=== PATIENT | male | born 1955 | race Caucasian/White ===

== ENCOUNTER 2021-01-29 10:40 | Inpatient (IN) ==
[2021-01-29 12:32] LABS: Influenza A PCR Negative (Negative); Influenza B PCR Negative (Negative); Resp. Syncytial Virus PCR Negative (Negative)
[2021-01-29 12:34] LABS: SARS-CoV-2 by PCR (In House) Positive (Negative)
[2021-01-29 13:46] LABS: Basophils % 0.2 %; Immature Granulocytes % 0.4 % (0-4)
[2021-01-29 13:48] LABS: Hematocrit 40.1 % (37.5-50.1); Immature Platelets 3.7 % (1.1-6.1); Lymphocytes # 0.9 K/mcL (0.6-4.6); Lymphocytes % 18.2 %; Mean Corpuscular HGB Conc 32.4 g/dL (31.6-35.5); Mean Corpuscular Hemoglobin 29.5 pg (28.0-33.3); Mean Corpuscular Volume 90.9 fL (83.0-100.0); Mean Platelet Volume 10.4 fL (9.4-12.4); Monocytes # 0.4 K/mcL (0.0-1.3); Monocytes % 7.7 %; Platelet Count 138 K/mcL (140-400); Red Blood Count 4.41 M/mcL (4.19-5.50); Red Cell Distribution Width 13.3 % (11.5-14.5); Segmented Neutrophils % 73.5 %; White Blood Count 4.7 K/mcL (4.3-11.1)
[2021-01-29 13:58] LABS: Neutrophils # 3.5 K/mcL (1.6-8.9)
[2021-01-29 14:04] LABS: INR 1.3; Prothrombin Time 14.7 Seconds (9.4-12.1)
[2021-01-29 14:07] LABS: Activated Partial Thrombo Time 40.7 Seconds (26.0-36.0)
[2021-01-29 14:08] LABS: Alanine Aminotransferase 32 Units/L (7-52); Albumin/Globulin Ratio 1.2 (1.1-2.2); Alkaline Phosphatase 53 Units/L (34-104); Aspartate Amino Transferase 40 Units/L (13-39); BUN/Creatinine Ratio 24 (6-26); Bilirubin,Direct 0.1 mg/dL (0.0-0.2); Bilirubin,Indirect 0.4 mg/dL (0.0-1.0); Bilirubin,Total 0.5 mg/dL (0.3-1.0); Blood Urea Nitrogen 31 mg/dL (8-23); Calcium 8.5 mg/dL (8.6-10.3); Carbon Dioxide 22 mEq/L (23-29); Chloride 103 mEq/L (98-107); Globulin 3.4 g/dL (2.4-3.5); Glucose 142 mg/dL (70-105); Osmolality,Calculated 285 (280-300); Potassium 4.4 mEq/L (3.5-5.1); Sodium 133 mEq/L (136-145); Total Protein 7.4 g/dL (6.4-8.9); Troponin I < 0.03 ng/mL (< 0.04); eGFR For African Americans > 60 (> 60); eGFR For Non-African Americans 56 (> 60)
[2021-01-29] MEDS ORDERED: *HR* HYDROcodone/Acet 5/325 mg TABLET PO PRN (17:50)
[2021-01-29] MEDS ORDERED: Naloxone 0.4 MG/ML INJ IVP PRN (17:50)
[2021-01-29] MEDS ORDERED: Ondansetron 4 MG/2 ML VIAL IVP PRN (17:50)
[2021-01-29] MEDS ORDERED: Acetaminophen 325 MG TABLET PO PRN (17:50)
[2021-01-29] MEDS ORDERED: Saliva Stimulant 44.3ml BOTTLE PO PRN (17:54)
[2021-01-29] MEDS ORDERED: Saline Nasal Spray 44 ML BOTTLE NS PRN (17:54)
[2021-01-29] MEDS ORDERED: Remdesivir 200 MG in 0.9 % Sodium Chloride 100 ML IVPB ONE (18:56)
[2021-01-29] MEDS: Ipratropium 1 PUFF INHALER IH SCH ×2 (20:52→23:08)
[2021-01-29 22:16] LABS: Chol/HDL Ratio 9.5 (0-4.9)
[2021-01-29] MEDS: Furosemide 20 MG/2 ML VIAL IVP SCH (22:48)
[2021-01-29] MEDS: Chlorhexidine Rinse 15 ML MOUTHWASH MM SCH (22:49)
[2021-01-30 01:57] LABS: Basophils % 0.2 %; Hematocrit 39.5 % (37.5-50.1); Hemoglobin 13.1 g/dL (12.9-16.9); Immature Granulocytes % 0.5 % (0-4); Lymphocytes # 0.9 K/mcL (0.6-4.6); Lymphocytes % 20.1 %; Mean Corpuscular HGB Conc 33.2 g/dL (31.6-35.5); Mean Corpuscular Hemoglobin 30.2 pg (28.0-33.3); Mean Platelet Volume 10.3 fL (9.4-12.4); Monocytes # 0.3 K/mcL (0.0-1.3); Monocytes % 7.1 %; Platelet Count 134 K/mcL (140-400); Red Blood Count 4.34 M/mcL (4.19-5.50); Red Cell Distribution Width 13.2 % (11.5-14.5); Segmented Neutrophils % 72.1 %; White Blood Count 4.2 K/mcL (4.3-11.1)
[2021-01-30 02:03] LABS: INR 1.3; Prothrombin Time 14.9 Seconds (9.4-12.1)
[2021-01-30 02:15] LABS: Alanine Aminotransferase 33 Units/L (7-52); Albumin 3.7 g/dL (3.5-5.7); Alkaline Phosphatase 46 Units/L (34-104); Aspartate Amino Transferase 43 Units/L (13-39); BUN/Creatinine Ratio 22 (6-26); Bilirubin,Total 0.4 mg/dL (0.3-1.0); Blood Urea Nitrogen 28 mg/dL (8-23); Calcium 7.9 mg/dL (8.6-10.3); Carbon Dioxide 18 mEq/L (23-29); Chloride 103 mEq/L (98-107); Globulin 3.6 g/dL (2.4-3.5); Glucose 205 mg/dL (70-105); Magnesium 2.1 mg/dL (1.6-2.6); Osmolality,Calculated 287 (280-300); Phosphorous 2.3 mg/dL (2.7-4.5); Sodium 133 mEq/L (136-145); Total Protein 7.3 g/dL (6.4-8.9); eGFR For African Americans > 60 (> 60); eGFR For Non-African Americans 58 (> 60)
[2021-01-30 02:22] LABS: C-Reactive Protein 44 mg/L (Less than 10); Lactate Dehydrogenase 249 Units/L (140-271)
[2021-01-30 02:34] LABS: Ferritin > 1500 ng/mL (20-250)
[2021-01-30] MEDS: Artificial Tears SOLN 15 ML BOTTLE BOTH EYES SCH ×3 (02:48→21:28)
[2021-01-30] MEDS: Ipratropium 1 PUFF INHALER IH SCH ×5 (05:19→20:20)
[2021-01-30] MEDS: NIFEdipine XL (24 HR) 30 MG TAB.ER.24 PO SCH (09:42)
[2021-01-30] MEDS: Apixaban 5 MG TABLET PO SCH ×2 (09:42→21:27)
[2021-01-30] MEDS: Cholecalciferol (D-3) 1,000 UNIT (25MCG) TABLET PO SCH (09:42)
[2021-01-30] MEDS: Metoprolol XL (24 HR) Succ 50 MG TAB.ER.24H PO SCH (09:42)
[2021-01-30] MEDS: Multivit/Ca/Min/Fe/FA 1 TAB TABLET PO SCH (09:42)
[2021-01-30] MEDS: Furosemide 20 MG/2 ML VIAL IVP SCH (09:43)
[2021-01-30] MEDS: Chlorhexidine Rinse 15 ML MOUTHWASH MM SCH ×2 (09:43→21:27)
[2021-01-30] MEDS: cefTRIAXone 1,000 MG in Water for inj. (sterile) 10 ML IVP SCH (09:44)
[2021-01-30] MEDS: Remdesivir 100 MG in 0.9 % Sodium Chloride 100 ML IVPB SCH (21:26)
[2021-01-31] MEDS: Ipratropium 1 PUFF INHALER IH SCH ×6 (00:15→20:28)
[2021-01-31 07:08] LABS: Alanine Aminotransferase 32 Units/L (7-52); Albumin 3.9 g/dL (3.5-5.7); Albumin/Globulin Ratio 1.1 (1.1-2.2); Alkaline Phosphatase 50 Units/L (34-104); Aspartate Amino Transferase 31 Units/L (13-39); BUN/Creatinine Ratio 23 (6-26); Bilirubin,Direct 0.1 mg/dL (0.0-0.2); Bilirubin,Indirect 0.3 mg/dL (0.0-1.0); Bilirubin,Total 0.4 mg/dL (0.3-1.0); Blood Urea Nitrogen 23 mg/dL (8-23); Calcium 8.7 mg/dL (8.6-10.3); Carbon Dioxide 23 mEq/L (23-29); Chloride 103 mEq/L (98-107); Globulin 3.7 g/dL (2.4-3.5); Glucose 183 mg/dL (70-105); Osmolality,Calculated 288 (280-300); Potassium 3.8 mEq/L (3.5-5.1); Sodium 135 mEq/L (136-145); Total Protein 7.6 g/dL (6.4-8.9); eGFR For African Americans > 60 (> 60); eGFR For Non-African Americans > 60 (> 60)
[2021-01-31] MEDS: Cholecalciferol (D-3) 1,000 UNIT (25MCG) TABLET PO SCH (08:57)
[2021-01-31] MEDS: Multivit/Ca/Min/Fe/FA 1 TAB TABLET PO SCH (08:57)
[2021-01-31] MEDS: Metoprolol XL (24 HR) Succ 50 MG TAB.ER.24H PO SCH (08:57)
[2021-01-31] MEDS: Apixaban 5 MG TABLET PO SCH ×2 (08:57→20:45)
[2021-01-31] MEDS: NIFEdipine XL (24 HR) 30 MG TAB.ER.24 PO SCH (08:58)
[2021-01-31] MEDS: Furosemide 20 MG/2 ML VIAL IVP SCH (08:58)
[2021-01-31] MEDS: Chlorhexidine Rinse 15 ML MOUTHWASH MM SCH ×2 (08:58→20:44)
[2021-01-31] MEDS: cefTRIAXone 1,000 MG in Water for inj. (sterile) 10 ML IVP SCH (08:59)
[2021-01-31] MEDS: Artificial Tears SOLN 15 ML BOTTLE BOTH EYES SCH ×2 (10:12→20:44)
[2021-01-31] MEDS: Remdesivir 100 MG in 0.9 % Sodium Chloride 100 ML IVPB SCH (18:36)
[2021-02-01] MEDS: Ipratropium 1 PUFF INHALER IH SCH ×7 (00:15→23:13)
[2021-02-01 05:49] LABS: Hematocrit 43.1 % (37.5-50.1); Hemoglobin 14.5 g/dL (12.9-16.9); Mean Corpuscular HGB Conc 33.6 g/dL (31.6-35.5); Mean Corpuscular Hemoglobin 29.8 pg (28.0-33.3); Mean Corpuscular Volume 88.5 fL (83.0-100.0); Mean Platelet Volume 10.3 fL (9.4-12.4); Platelet Count 223 K/mcL (140-400); Red Blood Count 4.87 M/mcL (4.19-5.50); Red Cell Distribution Width 13.2 % (11.5-14.5)
[2021-02-01 06:21] LABS: Alanine Aminotransferase 29 Units/L (7-52); Albumin 3.9 g/dL (3.5-5.7); Albumin/Globulin Ratio 1.1 (1.1-2.2); Alkaline Phosphatase 52 Units/L (34-104); Aspartate Amino Transferase 27 Units/L (13-39); BUN/Creatinine Ratio 29 (6-26); Bilirubin,Direct 0.2 mg/dL (0.0-0.2); Bilirubin,Indirect 0.2 mg/dL (0.0-1.0); Bilirubin,Total 0.4 mg/dL (0.3-1.0); Blood Urea Nitrogen 30 mg/dL (8-23); Calcium 9.2 mg/dL (8.6-10.3); Carbon Dioxide 20 mEq/L (23-29); Chloride 103 mEq/L (98-107); Globulin 3.5 g/dL (2.4-3.5); Glucose 156 mg/dL (70-105); Magnesium 2.2 mg/dL (1.6-2.6); Osmolality,Calculated 291 (280-300); Phosphorous 4.8 mg/dL (2.7-4.5); Potassium 4.4 mEq/L (3.5-5.1); Sodium 136 mEq/L (136-145); Total Protein 7.4 g/dL (6.4-8.9); eGFR For African Americans > 60 (> 60); eGFR For Non-African Americans > 60 (> 60)
[2021-02-01 06:40] LABS: White Blood Count 11.3 K/mcL (4.3-11.1)
[2021-02-01 06:42] LABS: Ferritin > 1500 ng/mL (20-250)
[2021-02-01] MEDS: Multivit/Ca/Min/Fe/FA 1 TAB TABLET PO SCH (07:47)
[2021-02-01] MEDS: Apixaban 5 MG TABLET PO SCH ×2 (07:48→20:32)
[2021-02-01] MEDS: Cholecalciferol (D-3) 1,000 UNIT (25MCG) TABLET PO SCH (07:48)
[2021-02-01] MEDS: Metoprolol XL (24 HR) Succ 50 MG TAB.ER.24H PO SCH (07:48)
[2021-02-01] MEDS: NIFEdipine XL (24 HR) 30 MG TAB.ER.24 PO SCH (07:48)
[2021-02-01] MEDS: Furosemide 20 MG/2 ML VIAL IVP SCH (07:48)
[2021-02-01] MEDS: cefTRIAXone 1,000 MG in Water for inj. (sterile) 10 ML IVP SCH (07:49)
[2021-02-01] MEDS: Chlorhexidine Rinse 15 ML MOUTHWASH MM SCH ×2 (07:49→20:33)
[2021-02-01 10:32] LABS: C-Reactive Protein 24 mg/L (Less than 10)
[2021-02-01] MEDS: Artificial Tears SOLN 15 ML BOTTLE BOTH EYES SCH ×2 (11:14→20:35)
[2021-02-01] MEDS: Remdesivir 100 MG in 0.9 % Sodium Chloride 100 ML IVPB SCH (20:31)
[2021-02-02] MEDS: Ipratropium 1 PUFF INHALER IH SCH ×4 (04:35→22:12)
[2021-02-02] MEDS: Apixaban 5 MG TABLET PO SCH ×2 (09:29→22:01)
[2021-02-02] MEDS: Cholecalciferol (D-3) 1,000 UNIT (25MCG) TABLET PO SCH (09:29)
[2021-02-02] MEDS: Metoprolol XL (24 HR) Succ 50 MG TAB.ER.24H PO SCH (09:30)
[2021-02-02] MEDS: Furosemide 20 MG/2 ML VIAL IVP SCH (09:30)
[2021-02-02] MEDS: Multivit/Ca/Min/Fe/FA 1 TAB TABLET PO SCH (09:30)
[2021-02-02] MEDS: NIFEdipine XL (24 HR) 30 MG TAB.ER.24 PO SCH (09:30)
[2021-02-02] MEDS: cefTRIAXone 1,000 MG in Water for inj. (sterile) 10 ML IVP SCH (09:31)
[2021-02-02] MEDS: Chlorhexidine Rinse 15 ML MOUTHWASH MM SCH ×2 (09:31→22:01)
[2021-02-02] MEDS: Artificial Tears SOLN 15 ML BOTTLE BOTH EYES SCH ×2 (14:20→22:01)
[2021-02-02] MEDS: Remdesivir 100 MG in 0.9 % Sodium Chloride 100 ML IVPB SCH (22:18)
[2021-02-03] MEDS: Ipratropium 1 PUFF INHALER IH SCH ×4 (04:57→22:12)
[2021-02-03 05:57] LABS: Hematocrit 41.9 % (37.5-50.1); Hemoglobin 14.3 g/dL (12.9-16.9); Mean Corpuscular HGB Conc 34.1 g/dL (31.6-35.5); Mean Corpuscular Hemoglobin 29.7 pg (28.0-33.3); Mean Corpuscular Volume 87.1 fL (83.0-100.0); Mean Platelet Volume 10.9 fL (9.4-12.4); Platelet Count 182 K/mcL (140-400); Red Blood Count 4.81 M/mcL (4.19-5.50); Red Cell Distribution Width 13.2 % (11.5-14.5); White Blood Count 15.4 K/mcL (4.3-11.1)
[2021-02-03 06:06] LABS: BUN/Creatinine Ratio 35 (6-26); Blood Urea Nitrogen 32 mg/dL (8-23); Calcium 8.9 mg/dL (8.6-10.3); Carbon Dioxide 24 mEq/L (23-29); Chloride 104 mEq/L (98-107); Glucose 189 mg/dL (70-105); Osmolality,Calculated 298 (280-300); Potassium 4.5 mEq/L (3.5-5.1); Sodium 138 mEq/L (136-145); eGFR For African Americans > 60 (> 60); eGFR For Non-African Americans > 60 (> 60)
[2021-02-03] MEDS: Chlorhexidine Rinse 15 ML MOUTHWASH MM SCH ×2 (07:52→22:49)
[2021-02-03] MEDS: Multivit/Ca/Min/Fe/FA 1 TAB TABLET PO SCH (07:53)
[2021-02-03] MEDS: Cholecalciferol (D-3) 1,000 UNIT (25MCG) TABLET PO SCH (07:53)
[2021-02-03] MEDS: Apixaban 5 MG TABLET PO SCH ×2 (07:53→22:49)
[2021-02-03] MEDS: Metoprolol XL (24 HR) Succ 50 MG TAB.ER.24H PO SCH (07:53)
[2021-02-03] MEDS: NIFEdipine XL (24 HR) 30 MG TAB.ER.24 PO SCH (07:53)
[2021-02-03] MEDS: cefTRIAXone 1,000 MG in Water for inj. (sterile) 10 ML IVP SCH (07:53)
[2021-02-03] MEDS: Furosemide 20 MG/2 ML VIAL IVP SCH (07:54)
[2021-02-03] MEDS: Artificial Tears SOLN 15 ML BOTTLE BOTH EYES SCH ×2 (07:54→22:49)
[2021-02-03 08:39] LABS: Ferritin 1308 ng/mL (20-250)
[2021-02-04] MEDS: Ipratropium 1 PUFF INHALER IH SCH ×4 (03:52→21:26)
[2021-02-04] MEDS: cefTRIAXone 1,000 MG in Water for inj. (sterile) 10 ML IVP SCH (09:05)
[2021-02-04] MEDS: Cholecalciferol (D-3) 1,000 UNIT (25MCG) TABLET PO SCH (09:06)
[2021-02-04] MEDS: Furosemide 20 MG/2 ML VIAL IVP SCH (09:06)
[2021-02-04] MEDS: Apixaban 5 MG TABLET PO SCH ×2 (09:06→21:02)
[2021-02-04] MEDS: Metoprolol XL (24 HR) Succ 50 MG TAB.ER.24H PO SCH (09:06)
[2021-02-04] MEDS: Chlorhexidine Rinse 15 ML MOUTHWASH MM SCH ×2 (09:06→21:02)
[2021-02-04] MEDS: NIFEdipine XL (24 HR) 30 MG TAB.ER.24 PO SCH (09:06)
[2021-02-04] MEDS: Multivit/Ca/Min/Fe/FA 1 TAB TABLET PO SCH (09:06)
[2021-02-04] MEDS: Artificial Tears SOLN 15 ML BOTTLE BOTH EYES SCH ×2 (09:17→21:05)
[2021-02-04] MEDS: Pantoprazole 40 MG VIAL IVP SCH (11:49)
[2021-02-04] MEDS: D5% in 0.45% NACL 1,000 ML IVC SCH (16:02)
[2021-02-04] MEDS ORDERED: *HR* LORazepam 2 MG/ML VIAL IVP ONE ×2 (21:17→22:46)
[2021-02-05] MEDS: Ipratropium 1 PUFF INHALER IH SCH ×4 (04:11→20:46)
[2021-02-05] MEDS: D5% in 0.45% NACL 1,000 ML IVC SCH ×2 (05:04→18:20)
[2021-02-05] MEDS: Multivit/Ca/Min/Fe/FA 1 TAB TABLET PO SCH (09:33)
[2021-02-05] MEDS: Apixaban 5 MG TABLET PO SCH ×2 (09:33→20:43)
[2021-02-05] MEDS: Furosemide 20 MG/2 ML VIAL IVP SCH (09:33)
[2021-02-05] MEDS: Pantoprazole 40 MG VIAL IVP SCH (09:33)
[2021-02-05] MEDS: Cholecalciferol (D-3) 1,000 UNIT (25MCG) TABLET PO SCH (09:33)
[2021-02-05] MEDS: Metoprolol XL (24 HR) Succ 50 MG TAB.ER.24H PO SCH (09:34)
[2021-02-05] MEDS: Artificial Tears SOLN 15 ML BOTTLE BOTH EYES SCH ×2 (09:34→20:57)
[2021-02-05] MEDS: NIFEdipine XL (24 HR) 30 MG TAB.ER.24 PO SCH (09:34)
[2021-02-05] MEDS: Chlorhexidine Rinse 15 ML MOUTHWASH MM SCH ×3 (09:34→20:58)
[2021-02-05 10:27] LABS: Basophils % 0.2 %; Hematocrit 40.2 % (37.5-50.1); Hemoglobin 13.6 g/dL (12.9-16.9); Immature Granulocytes % 3.6 % (0-4); Lymphocytes # 0.6 K/mcL (0.6-4.6); Lymphocytes % 2.9 %; Mean Corpuscular HGB Conc 33.8 g/dL (31.6-35.5); Mean Corpuscular Hemoglobin 29.8 pg (28.0-33.3); Mean Platelet Volume 10.6 fL (9.4-12.4); Monocytes # 0.5 K/mcL (0.0-1.3); Monocytes % 2.4 %; Neutrophils # 17.1 K/mcL (1.6-8.9); Platelet Count 291 K/mcL (140-400); Red Blood Count 4.57 M/mcL (4.19-5.50); Segmented Neutrophils % 90.9 %; White Blood Count 18.8 K/mcL (4.3-11.1)
[2021-02-05 10:41] LABS: BUN/Creatinine Ratio 35 (6-26); Blood Urea Nitrogen 29 mg/dL (8-23); Calcium 8.5 mg/dL (8.6-10.3); Carbon Dioxide 23 mEq/L (23-29); Chloride 102 mEq/L (98-107); Glucose 187 mg/dL (70-105); Osmolality,Calculated 291 (280-300); Potassium 4.8 mEq/L (3.5-5.1); Sodium 135 mEq/L (136-145); eGFR For African Americans > 60 (> 60); eGFR For Non-African Americans > 60 (> 60)
[2021-02-05] MEDS: *HR* LORazepam 2 MG/ML VIAL IVP PRN ×3 (10:41→20:54)
[2021-02-05] MEDS: Melatonin 3 MG TABLET PO PRN (20:42)
[2021-02-06] MEDS: *HR* LORazepam 2 MG/ML VIAL IVP PRN ×4 (01:37→17:15)
[2021-02-06] MEDS: Ipratropium 1 PUFF INHALER IH SCH ×4 (03:55→21:43)
[2021-02-06] MEDS: D5% in 0.45% NACL 1,000 ML IVC SCH (07:11)
[2021-02-06] MEDS: Pantoprazole 40 MG VIAL IVP SCH (08:30)
[2021-02-06] MEDS: Furosemide 20 MG/2 ML VIAL IVP SCH (08:31)
[2021-02-06] MEDS: Multivit/Ca/Min/Fe/FA 1 TAB TABLET PO SCH (08:32)
[2021-02-06] MEDS: Metoprolol XL (24 HR) Succ 50 MG TAB.ER.24H PO SCH (08:32)
[2021-02-06] MEDS: Cholecalciferol (D-3) 1,000 UNIT (25MCG) TABLET PO SCH (08:32)
[2021-02-06] MEDS: NIFEdipine XL (24 HR) 30 MG TAB.ER.24 PO SCH (08:33)
[2021-02-06] MEDS: Artificial Tears SOLN 15 ML BOTTLE BOTH EYES SCH ×2 (08:33→21:03)
[2021-02-06] MEDS: Apixaban 5 MG TABLET PO SCH ×2 (08:33→21:03)
[2021-02-06] MEDS: Chlorhexidine Rinse 15 ML MOUTHWASH MM SCH ×2 (08:34→21:02)
[2021-02-06 09:54] LABS: C-Reactive Protein 117 mg/L (Less than 10); Ferritin > 1500 ng/mL (20-250)
[2021-02-06] MEDS: Melatonin 3 MG TABLET PO PRN (21:03)
[2021-02-07] MEDS: *HR* LORazepam 2 MG/ML VIAL IVP PRN ×2 (02:44→13:11)
[2021-02-07] MEDS: Ipratropium 1 PUFF INHALER IH SCH ×5 (03:03→23:49)
[2021-02-07] MEDS: Apixaban 5 MG TABLET PO SCH ×2 (10:01→20:03)
[2021-02-07] MEDS: Pantoprazole 40 MG VIAL IVP SCH (10:01)
[2021-02-07] MEDS: Metoprolol XL (24 HR) Succ 50 MG TAB.ER.24H PO SCH (10:01)
[2021-02-07] MEDS: Cholecalciferol (D-3) 1,000 UNIT (25MCG) TABLET PO SCH (10:01)
[2021-02-07] MEDS: Multivit/Ca/Min/Fe/FA 1 TAB TABLET PO SCH (10:01)
[2021-02-07] MEDS: Chlorhexidine Rinse 15 ML MOUTHWASH MM SCH ×2 (10:01→20:03)
[2021-02-07] MEDS: Artificial Tears SOLN 15 ML BOTTLE BOTH EYES SCH ×2 (10:02→20:03)
[2021-02-07] MEDS: NIFEdipine XL (24 HR) 30 MG TAB.ER.24 PO SCH (10:15)
[2021-02-07] MEDS: Furosemide 20 MG/2 ML VIAL IVP SCH (10:16)
[2021-02-07 14:25] LABS: Hematocrit 41.2 % (37.5-50.1); Hemoglobin 13.8 g/dL (12.9-16.9); Mean Corpuscular HGB Conc 33.5 g/dL (31.6-35.5); Mean Corpuscular Hemoglobin 29.7 pg (28.0-33.3); Mean Corpuscular Volume 88.8 fL (83.0-100.0); Mean Platelet Volume 10.3 fL (9.4-12.4); Platelet Count 326 K/mcL (140-400); Red Blood Count 4.64 M/mcL (4.19-5.50); Red Cell Distribution Width 13.1 % (11.5-14.5); White Blood Count 18.7 K/mcL (4.3-11.1)
[2021-02-07 14:28] LABS: Alanine Aminotransferase 36 Units/L (7-52); Albumin 3.3 g/dL (3.5-5.7); Albumin/Globulin Ratio 0.8 (1.1-2.2); Alkaline Phosphatase 57 Units/L (34-104); Aspartate Amino Transferase 27 Units/L (13-39); BUN/Creatinine Ratio 35 (6-26); Bilirubin,Total 0.7 mg/dL (0.3-1.0); Blood Urea Nitrogen 34 mg/dL (8-23); Calcium 8.8 mg/dL (8.6-10.3); Carbon Dioxide 27 mEq/L (23-29); Chloride 101 mEq/L (98-107); Globulin 4.3 g/dL (2.4-3.5); Glucose 206 mg/dL (70-105); Magnesium 2.6 mg/dL (1.6-2.6); Osmolality,Calculated 300 (280-300); Potassium 4.5 mEq/L (3.5-5.1); Sodium 138 mEq/L (136-145); Total Protein 7.6 g/dL (6.4-8.9); eGFR For African Americans > 60 (> 60); eGFR For Non-African Americans > 60 (> 60)
[2021-02-07 15:38] LABS: Lymphocytes # 1.1 K/mcL (0.6-4.6); Monocytes # 0.4 K/mcL (0.0-1.3); Neutrophils # 17.2 K/mcL (1.6-8.9); Platelet Estimate Normal (Normal)
[2021-02-07] MEDS ORDERED: D5% in Water 1,000 ML IVC PRN (15:45)
[2021-02-07] MEDS ORDERED: Dextrose Gel 15 GM/37.5 ML TUBE PO PRN ×2 (15:45)
[2021-02-07 16:46] LABS: ABG Base Excess 5 mEq/L (-2 to 3); ABG HCO3 28 mEq/L (21-27); ABG Oxygen Saturation 91 % (95-98); ABG PCO2 36 mmHg (35-45); ABG PO2 56 mmHg (85-104); ABG TCO2 29 mEq/L (20-26)
[2021-02-07] MEDS: Saline Nasal Spray 44 ML BOTTLE NS SCH ×2 (18:19→19:55)
[2021-02-07] MEDS: Ampicillin/Sulbactam 1,500 MG in 0.9 % Sodium Chloride Mini Bag 100 ML IVPB SCH (18:24)
[2021-02-08] MEDS: Saline Nasal Spray 44 ML BOTTLE NS SCH ×6 (00:20→21:45)
[2021-02-08] MEDS: Ampicillin/Sulbactam 1,500 MG in 0.9 % Sodium Chloride Mini Bag 100 ML IVPB SCH ×4 (01:28→17:05)
[2021-02-08] MEDS: Ipratropium 1 PUFF INHALER IH SCH ×5 (03:31→19:58)
[2021-02-08] MEDS: Artificial Tears SOLN 15 ML BOTTLE BOTH EYES SCH ×2 (09:52→21:45)
[2021-02-08] MEDS: Chlorhexidine Rinse 15 ML MOUTHWASH MM SCH ×2 (09:53→21:45)
[2021-02-08] MEDS: Multivit/Ca/Min/Fe/FA 1 TAB TABLET PO SCH (09:54)
[2021-02-08] MEDS: Metoprolol XL (24 HR) Succ 50 MG TAB.ER.24H PO SCH (09:54)
[2021-02-08] MEDS: Apixaban 5 MG TABLET PO SCH ×2 (09:54→21:45)
[2021-02-08] MEDS: Cholecalciferol (D-3) 1,000 UNIT (25MCG) TABLET PO SCH (09:54)
[2021-02-08] MEDS: Furosemide 20 MG/2 ML VIAL IVP SCH (09:57)
[2021-02-08] MEDS: NIFEdipine XL (24 HR) 30 MG TAB.ER.24 PO SCH (10:02)
[2021-02-08] MEDS: Pantoprazole 40 MG VIAL IVP SCH (10:03)
[2021-02-08] MEDS ORDERED: Lidocaine -MPF 1% 5 ML AMPUL INFILT ONE (13:01)
[2021-02-08 13:28] LABS: Basophils # 0.1 K/mcL (0.0-0.2); Basophils % 0.4 %; Hematocrit 40.4 % (37.5-50.1); Hemoglobin 13.3 g/dL (12.9-16.9); Immature Granulocytes % 5.6 % (0-4); Lymphocytes # 0.3 K/mcL (0.6-4.6); Lymphocytes % 1.2 %; Mean Corpuscular HGB Conc 32.9 g/dL (31.6-35.5); Mean Corpuscular Hemoglobin 29.8 pg (28.0-33.3); Mean Corpuscular Volume 90.4 fL (83.0-100.0); Mean Platelet Volume 10.2 fL (9.4-12.4); Monocytes % 2.6 %; Platelet Count 303 K/mcL (140-400); Red Blood Count 4.47 M/mcL (4.19-5.50); Red Cell Distribution Width 13.2 % (11.5-14.5); Segmented Neutrophils % 90.2 %; White Blood Count 20.9 K/mcL (4.3-11.1)
[2021-02-08 13:32] LABS: Monocytes # 0.5 K/mcL (0.0-1.3); Neutrophils # 18.9 K/mcL (1.6-8.9)
[2021-02-08 13:50] LABS: Alanine Aminotransferase 27 Units/L (7-52); Albumin 3.1 g/dL (3.5-5.7); Albumin/Globulin Ratio 0.7 (1.1-2.2); Alkaline Phosphatase 58 Units/L (34-104); Aspartate Amino Transferase 25 Units/L (13-39); BUN/Creatinine Ratio 39 (6-26); Bilirubin,Total 0.9 mg/dL (0.3-1.0); Blood Urea Nitrogen 41 mg/dL (8-23); C-Reactive Protein 74 mg/L (Less than 10); Calcium 8.5 mg/dL (8.6-10.3); Carbon Dioxide 25 mEq/L (23-29); Chloride 99 mEq/L (98-107); Globulin 4.2 g/dL (2.4-3.5); Glucose 270 mg/dL (70-105); Lactate Dehydrogenase 461 Units/L (140-271); Magnesium 2.5 mg/dL (1.6-2.6); Osmolality,Calculated 302 (280-300); Phosphorous 3.9 mg/dL (2.7-4.5); Potassium 4.6 mEq/L (3.5-5.1); Sodium 136 mEq/L (136-145); Total Protein 7.3 g/dL (6.4-8.9); eGFR For African Americans > 60 (> 60); eGFR For Non-African Americans > 60 (> 60)
[2021-02-08 14:12] LABS: Ferritin > 1500 ng/mL (20-250)
[2021-02-08 14:47] LABS: Platelet Estimate Normal (Normal)
[2021-02-08] MEDS: Melatonin 3 MG TABLET PO PRN (21:45)
[2021-02-09] MEDS: Ipratropium 1 PUFF INHALER IH SCH ×7 (00:08→23:58)
[2021-02-09] MEDS: Saline Nasal Spray 44 ML BOTTLE NS SCH ×7 (01:48→23:43)
[2021-02-09] MEDS: Ampicillin/Sulbactam 1,500 MG in 0.9 % Sodium Chloride Mini Bag 100 ML IVPB SCH ×4 (01:48→17:32)
[2021-02-09 04:49] LABS: Hemoglobin 13.1 g/dL (12.9-16.9); Red Blood Count 4.41 M/mcL (4.19-5.50)
[2021-02-09 04:50] LABS: Basophils # 0.1 K/mcL (0.0-0.2); Basophils % 0.3 %; Hematocrit 39.6 % (37.5-50.1); Immature Granulocytes % 5.4 % (0-4); Lymphocytes # 0.4 K/mcL (0.6-4.6); Mean Corpuscular HGB Conc 33.1 g/dL (31.6-35.5); Mean Corpuscular Hemoglobin 29.7 pg (28.0-33.3); Mean Corpuscular Volume 89.8 fL (83.0-100.0); Mean Platelet Volume 10.2 fL (9.4-12.4); Monocytes # 0.6 K/mcL (0.0-1.3); Platelet Count 265 K/mcL (140-400); Red Cell Distribution Width 12.9 % (11.5-14.5); Segmented Neutrophils % 89.3 %
[2021-02-09 05:02] LABS: Neutrophils # 18.8 K/mcL (1.6-8.9)
[2021-02-09 05:14] LABS: Alanine Aminotransferase 24 Units/L (7-52); Albumin/Globulin Ratio 0.8 (1.1-2.2); Alkaline Phosphatase 59 Units/L (34-104); Aspartate Amino Transferase 25 Units/L (13-39); BUN/Creatinine Ratio 44 (6-26); Bilirubin,Total 0.6 mg/dL (0.3-1.0); Blood Urea Nitrogen 39 mg/dL (8-23); C-Reactive Protein 109 mg/L (Less than 10); Calcium 8.5 mg/dL (8.6-10.3); Carbon Dioxide 26 mEq/L (23-29); Chloride 103 mEq/L (98-107); Glucose 140 mg/dL (70-105); Lactate Dehydrogenase 508 Units/L (140-271); Magnesium 2.8 mg/dL (1.6-2.6); Osmolality,Calculated 300 (280-300); Potassium 4.4 mEq/L (3.5-5.1); Sodium 139 mEq/L (136-145); eGFR For African Americans > 60 (> 60); eGFR For Non-African Americans > 60 (> 60)
[2021-02-09 05:38] LABS: Ferritin > 1500 ng/mL (20-250)
[2021-02-09 05:57] LABS: Platelet Estimate Normal (Normal)
[2021-02-09] MEDS: NIFEdipine XL (24 HR) 30 MG TAB.ER.24 PO SCH (08:25)
[2021-02-09] MEDS: Cholecalciferol (D-3) 1,000 UNIT (25MCG) TABLET PO SCH (08:25)
[2021-02-09] MEDS: Metoprolol XL (24 HR) Succ 50 MG TAB.ER.24H PO SCH (08:25)
[2021-02-09] MEDS: Multivit/Ca/Min/Fe/FA 1 TAB TABLET PO SCH (08:25)
[2021-02-09] MEDS: Chlorhexidine Rinse 15 ML MOUTHWASH MM SCH ×2 (08:25→20:24)
[2021-02-09] MEDS: Pantoprazole 40 MG VIAL IVP SCH (08:25)
[2021-02-09] MEDS: Apixaban 5 MG TABLET PO SCH (08:25)
[2021-02-09] MEDS: Furosemide 20 MG/2 ML VIAL IVP SCH (08:26)
[2021-02-09] MEDS: *HR* LORazepam 2 MG/ML VIAL IVP PRN (08:26)
[2021-02-09] MEDS: Artificial Tears SOLN 15 ML BOTTLE BOTH EYES SCH ×2 (08:41→20:24)
[2021-02-09 09:28] LABS: ABG Base Excess 3 mEq/L (-2 to 3); ABG HCO3 26 mEq/L (21-27); ABG Oxygen Saturation 88 % (95-98); ABG PCO2 36 mmHg (35-45); ABG PH 7.48 pH Units (7.32-7.45); ABG PO2 50 mmHg (85-104); ABG TCO2 27 mEq/L (20-26); Blood Gas VT 450 cc
[2021-02-09] MEDS ORDERED: 0.9 % Sodium Chloride 500 ML ONE (11:17)
[2021-02-09] MEDS ORDERED: D10% in Water 500 ML IVC PRN (11:19)
[2021-02-09] MEDS: DilTIAZem 50 MG/50 ML IV.SOLN IVC SCH ×3 (11:27→20:29)
[2021-02-09] MEDS ORDERED: *HR* Metoprolol 5 MG/5 ML VIAL IVP ONE (11:29)
[2021-02-09] MEDS ORDERED: Dexmedetomidine HCl 400 MCG/100 ML MLS IVC ONE (14:10)
[2021-02-09] MEDS: Dexmedetomidine HCl 400 MCG/100 ML MLS IVC SCH (14:37)
[2021-02-09] MEDS ORDERED: Amiodarone Premix 360 MG/200 ML BAG IVC ONE (16:44)
[2021-02-09] MEDS ORDERED: Amiodarone Premix 150 MG/100 ML BAG IVPB ONE (16:44)
[2021-02-09] MEDS: *HR* Metoprolol 5 MG/5 ML VIAL IVP PRN (16:51)
[2021-02-09] MEDS: Insulin LISPRO 300 UNITS/3 ML VIAL SUBQ SCH ×2 (16:52→20:23)
[2021-02-09] MEDS ORDERED: Clinimix 5%-20% SOLUTION 2,000 ML with MVI, adult with vitamin K 10 ML, Sodium Acetat... IVC SCH (17:00)
[2021-02-09 17:06] LABS: Hematocrit 40.3 % (37.5-50.1); Hemoglobin 13.3 g/dL (12.9-16.9); Mean Corpuscular Hemoglobin 30.1 pg (28.0-33.3); Mean Corpuscular Volume 91.2 fL (83.0-100.0); Mean Platelet Volume 10.3 fL (9.4-12.4); Platelet Count 258 K/mcL (140-400); Red Blood Count 4.42 M/mcL (4.19-5.50); Red Cell Distribution Width 13.2 % (11.5-14.5); White Blood Count 24.6 K/mcL (4.3-11.1)
[2021-02-09 17:53] LABS: INR 1.9; Prothrombin Time 21.1 Seconds (9.4-12.1)
[2021-02-09 17:56] LABS: Activated Partial Thrombo Time 33.9 Seconds (26.0-36.0)
[2021-02-09] MEDS ORDERED: *HR* Heparin 5,000 UNIT/ML VIAL IVP PRN ×2 (18:00)
[2021-02-09] MEDS: Heparin 25,000UNIT/250ML 1/2NS 25,000 UNIT/250 ML IV.SOLN IVC SCH (19:41)
[2021-02-09] MEDS: Amiodarone Premix 360 MG/200 ML BAG IVC SCH (23:21)
[2021-02-10] MEDS: Dexmedetomidine HCl 400 MCG/100 ML MLS IVC SCH ×3 (00:03→13:02)
[2021-02-10] MEDS: Insulin LISPRO 300 UNITS/3 ML VIAL SUBQ SCH ×5 (00:23→20:07)
[2021-02-10] MEDS: *HR* Metoprolol 5 MG/5 ML VIAL IVP PRN ×3 (01:45→08:17)
[2021-02-10 03:23] LABS: Basophils # 0.1 K/mcL (0.0-0.2); Basophils % 0.3 %; Hematocrit 41.9 % (37.5-50.1); Hemoglobin 13.6 g/dL (12.9-16.9); Immature Granulocytes % 3.4 % (0-4); Lymphocytes # 0.4 K/mcL (0.6-4.6); Lymphocytes % 1.9 %; Mean Corpuscular HGB Conc 32.5 g/dL (31.6-35.5); Mean Corpuscular Hemoglobin 29.8 pg (28.0-33.3); Mean Corpuscular Volume 91.9 fL (83.0-100.0); Mean Platelet Volume 10.6 fL (9.4-12.4); Monocytes # 0.6 K/mcL (0.0-1.3); Monocytes % 2.6 %; Neutrophils # 20.2 K/mcL (1.6-8.9); Platelet Count 209 K/mcL (140-400); Red Blood Count 4.56 M/mcL (4.19-5.50); Segmented Neutrophils % 91.8 %
[2021-02-10 03:45] LABS: Alanine Aminotransferase 25 Units/L (7-52); Albumin 2.9 g/dL (3.5-5.7); Albumin/Globulin Ratio 0.7 (1.1-2.2); Alkaline Phosphatase 62 Units/L (34-104); Aspartate Amino Transferase 19 Units/L (13-39); BUN/Creatinine Ratio 50 (6-26); Bilirubin,Total 0.4 mg/dL (0.3-1.0); Blood Urea Nitrogen 55 mg/dL (8-23); C-Reactive Protein 115 mg/L (Less than 10); Calcium 8.2 mg/dL (8.6-10.3); Carbon Dioxide 25 mEq/L (23-29); Chloride 100 mEq/L (98-107); Globulin 3.9 g/dL (2.4-3.5); Glucose 403 mg/dL (70-105); Lactate Dehydrogenase 437 Units/L (140-271); Magnesium 2.9 mg/dL (1.6-2.6); Osmolality,Calculated 312 (280-300); Phosphorous 4.2 mg/dL (2.7-4.5); Potassium 3.9 mEq/L (3.5-5.1); Sodium 135 mEq/L (136-145); Total Protein 6.8 g/dL (6.4-8.9); Triglycerides 219 mg/dL (< 150); eGFR For African Americans > 60 (> 60); eGFR For Non-African Americans > 60 (> 60)
[2021-02-10 03:50] LABS: Activated Partial Thrombo Time 90.4 Seconds (26.0-36.0)
[2021-02-10] MEDS: Ipratropium 1 PUFF INHALER IH SCH ×5 (04:03→20:14)
[2021-02-10 04:05] LABS: Ferritin > 1500 ng/mL (20-250)
[2021-02-10] MEDS: Saline Nasal Spray 44 ML BOTTLE NS SCH ×4 (04:38→21:38)
[2021-02-10] MEDS: Ampicillin/Sulbactam 1,500 MG in 0.9 % Sodium Chloride Mini Bag 100 ML IVPB SCH ×4 (05:44→19:45)
[2021-02-10] MEDS: DilTIAZem 50 MG/50 ML IV.SOLN IVC SCH ×3 (06:41→14:32)
[2021-02-10] MEDS ORDERED: Potassium Chloride 20 MEQ, Lidocaine 1% 2 ML in 0.9 % Sodium Chloride 250 ML IVPB ONE (07:38)
[2021-02-10] MEDS: Furosemide 20 MG/2 ML VIAL IVP SCH (08:15)
[2021-02-10] MEDS: Cholecalciferol (D-3) 1,000 UNIT (25MCG) TABLET PO SCH (08:16)
[2021-02-10] MEDS: Artificial Tears SOLN 15 ML BOTTLE BOTH EYES SCH ×2 (08:17→19:38)
[2021-02-10] MEDS: Multivit/Ca/Min/Fe/FA 1 TAB TABLET PO SCH (08:17)
[2021-02-10] MEDS: Pantoprazole 40 MG VIAL IVP SCH (08:17)
[2021-02-10] MEDS: Chlorhexidine Rinse 15 ML MOUTHWASH MM SCH ×2 (08:17→19:37)
[2021-02-10] MEDS ORDERED: Perflutren Lipid Microsphere 1.3 ML in 0.9 % Sodium Chloride 8.7 ML IVP PRN (08:28)
[2021-02-10 08:52] LABS: ABG Base Excess -1 mEq/L (-2 to 3); ABG HCO3 23 mEq/L (21-27); ABG Oxygen Saturation 85 % (95-98); ABG PCO2 35 mmHg (35-45); ABG PH 7.42 pH Units (7.32-7.45); ABG PO2 49 mmHg (85-104); ABG TCO2 24 mEq/L (20-26)
[2021-02-10] MEDS ORDERED: 0.9 % Sodium Chloride 500 ML ONE ×3 (09:57→10:39)
[2021-02-10] MEDS ORDERED: Insulin DETEMIR 100 UNIT/ML X5UNITS SUBQ ONE (10:30)
[2021-02-10] MEDS: Midazolam HCl 50 MG/100 ML IV.SOLN IVC SCH ×2 (10:30→20:55)
[2021-02-10] MEDS: Cisatracurium 200 MG in 0.9 % Sodium Chloride 180 ML IVC SCH ×2 (10:30→21:45)
[2021-02-10] MEDS: FentaNYL (PF) 1,000 MCG/100 ML IV.SOLN IVC SCH ×3 (10:30→20:04)
[2021-02-10] MEDS: Norepinephrine 4 MG/254 ML IV.SOLN IVC SCH ×2 (10:40→20:33)
[2021-02-10] MEDS: Amiodarone Premix 360 MG/200 ML BAG IVC SCH (12:13)
[2021-02-10] MEDS ORDERED: Clinimix 5%-20% SOLUTION 2,000 ML with MVI, adult with vitamin K 10 ML, Sodium Acetat... IVC SCH (17:00)
[2021-02-10] MEDS: Heparin 25,000UNIT/250ML 1/2NS 25,000 UNIT/250 ML IV.SOLN IVC SCH (19:00)
[2021-02-10 19:57] LABS: ABG Base Excess -5 mEq/L (-2 to 3); ABG HCO3 24 mEq/L (21-27); ABG Oxygen Saturation 91 % (95-98); ABG PCO2 61 mmHg (35-45); ABG PH 7.21 pH Units (7.32-7.45); ABG PO2 76 mmHg (85-104); ABG TCO2 26 mEq/L (20-26); Blood Gas VT 480 cc
[2021-02-10] MEDS: Insulin DETEMIR 100 UNIT/ML X5UNITS SUBQ SCH (20:06)
[2021-02-10 21:11] LABS: Hemoglobin 12.1 g/dL (12.9-16.9)
[2021-02-10 21:32] LABS: Magnesium 3.2 mg/dL (1.6-2.6); Phosphorous 5.8 mg/dL (2.7-4.5)
[2021-02-10 22:14] LABS: VBG Ionized Calcium 0.85 mmol/L (1.15-1.35)
[2021-02-10] MEDS ORDERED: Calcium Chloride 2,000 MG in 0.9 % Sodium Chloride 100 ML IVPB ONE (22:48)
[2021-02-11] MEDS: Saline Nasal Spray 44 ML BOTTLE NS SCH ×4 (00:02→11:47)
[2021-02-11] MEDS: Ampicillin/Sulbactam 1,500 MG in 0.9 % Sodium Chloride Mini Bag 100 ML IVPB SCH ×2 (00:04→05:43)
[2021-02-11] MEDS: Ipratropium 1 PUFF INHALER IH SCH ×7 (00:12→23:33)
[2021-02-11] MEDS ORDERED: Amiodarone Premix 360 MG/200 ML BAG IVC ONE (01:00)
[2021-02-11] MEDS: FentaNYL (PF) 1,000 MCG/100 ML IV.SOLN IVC SCH ×5 (01:18→23:08)
[2021-02-11] MEDS: Norepinephrine 4 MG/254 ML IV.SOLN IVC SCH ×4 (04:15→23:47)
[2021-02-11 04:34] LABS: ABG Base Excess -7 mEq/L (-2 to 3); ABG HCO3 22 mEq/L (21-27); ABG Oxygen Saturation 97 % (95-98); ABG PCO2 53 mmHg (35-45); ABG PH 7.22 pH Units (7.32-7.45); ABG PO2 110 mmHg (85-104); ABG TCO2 23 mEq/L (20-26); Blood Gas Modality ASSIST CONTROL; Blood Gas VT 460 cc
[2021-02-11] MEDS: Insulin LISPRO 300 UNITS/3 ML VIAL SUBQ SCH ×5 (04:45→15:17)
[2021-02-11 04:51] LABS: Basophils % 0.4 %; Hematocrit 39.2 % (37.5-50.1); Hemoglobin 12.6 g/dL (12.9-16.9); Lymphocytes % 0.9 %; Mean Corpuscular HGB Conc 32.1 g/dL (31.6-35.5); Mean Corpuscular Hemoglobin 30.1 pg (28.0-33.3); Mean Corpuscular Volume 93.8 fL (83.0-100.0); Mean Platelet Volume 10.9 fL (9.4-12.4); Red Blood Count 4.18 M/mcL (4.19-5.50); Red Cell Distribution Width 13.2 % (11.5-14.5)
[2021-02-11 04:53] LABS: Basophils # 0.2 K/mcL (0.0-0.2); Immature Granulocytes % 4.6 % (0-4); Lymphocytes # 0.4 K/mcL (0.6-4.6); Monocytes # 1.3 K/mcL (0.0-1.3); Monocytes % 2.9 %; Platelet Count 274 K/mcL (140-400); Segmented Neutrophils % 91.2 %
[2021-02-11 05:01] LABS: Calcium 8.6 mg/dL (8.6-10.3); Magnesium 2.7 mg/dL (1.6-2.6); Phosphorous 5.3 mg/dL (2.7-4.5); Potassium 4.5 mEq/L (3.5-5.1)
[2021-02-11 05:06] LABS: VBG Ionized Calcium 1.11 mmol/L (1.15-1.35)
[2021-02-11 07:25] LABS: Platelet Estimate Normal (Normal)
[2021-02-11] MEDS: Pantoprazole 40 MG VIAL IVP SCH (07:34)
[2021-02-11] MEDS: Cholecalciferol (D-3) 1,000 UNIT (25MCG) TABLET PO SCH (07:35)
[2021-02-11] MEDS: Dexamethasone Sodium Phos/PF 10 MG/ML VIAL IVP SCH (07:35)
[2021-02-11] MEDS: Amiodarone Premix 360 MG/200 ML BAG IVC SCH ×3 (07:36→19:19)
[2021-02-11] MEDS: Chlorhexidine Rinse 15 ML MOUTHWASH MM SCH ×2 (07:36→20:04)
[2021-02-11] MEDS: Furosemide 20 MG/2 ML VIAL IVP SCH (07:36)
[2021-02-11] MEDS: Multivit/Ca/Min/Fe/FA 1 TAB TABLET PO SCH (08:06)
[2021-02-11] MEDS: Insulin DETEMIR 100 UNIT/ML X5UNITS SUBQ SCH (08:06)
[2021-02-11] MEDS: Artificial Tears SOLN 15 ML BOTTLE BOTH EYES SCH ×5 (08:06→23:47)
[2021-02-11] MEDS: Midazolam HCl 50 MG/100 ML IV.SOLN IVC SCH ×2 (09:18→23:08)
[2021-02-11] MEDS: Cisatracurium 200 MG in 0.9 % Sodium Chloride 180 ML IVC SCH ×2 (09:19→20:30)
[2021-02-11] MEDS ORDERED: Insulin DETEMIR 100 UNIT/ML X5UNITS SUBQ ONE (09:45)
[2021-02-11] MEDS: Heparin 25,000UNIT/250ML 1/2NS 25,000 UNIT/250 ML IV.SOLN IVC SCH ×2 (11:30→23:20)
[2021-02-11] MEDS ORDERED: Artificial Tears SOLN 15 ML BOTTLE BOTH EYES PRN (11:58)
[2021-02-11 12:11] LABS: Hematocrit 43.6 % (37.5-50.1); Hemoglobin 14.1 g/dL (12.9-16.9); Lymphocytes # 0.5 K/mcL (0.6-4.6); Mean Corpuscular HGB Conc 32.3 g/dL (31.6-35.5); Mean Corpuscular Hemoglobin 30.3 pg (28.0-33.3); Mean Corpuscular Volume 93.6 fL (83.0-100.0); Platelet Count 321 K/mcL (140-400); Red Blood Count 4.66 M/mcL (4.19-5.50); Red Cell Distribution Width 13.3 % (11.5-14.5)
[2021-02-11 12:20] LABS: Bilirubin,Urine Negative (Negative); Blood,Urine Large (Negative); Clarity,Urine Turbid (Clear); Color,Urine Yellow (Yellow); Glucose,Urine (UA) Normal (Normal); Hyaline Casts,Urine Many per lpf (None Seen); Ketones,Urine Negative (Negative); Leukocyte Esterase,Urine Negative (Negative); Mucus,Urine Few per lpf (None-Few); Nitrite,Urine Negative (Negative); Protein,Urine 30 mg/dL (Neg-Trace); RBC,Urine TNTC per hpf (0-3); Specific Gravity,Urine 1.022 (1.010-1.025); Squamous Epithelial Cell,Urine Few per hpf (None-Few); Urobilinogen,Urine Normal (Normal); White Blood Count 49.7 K/mcL (4.3-11.1)
[2021-02-11] MEDS: Phenylephrine 50 MG in 0.9 % Sodium Chloride 250 ML IVC SCH ×2 (12:47→19:16)
[2021-02-11 12:49] LABS: Monocytes # 0.5 K/mcL (0.0-1.3); Neutrophils # 47.7 K/mcL (1.6-8.9); Platelet Estimate Normal (Normal); Toxic Granulation Present (Not Present)
[2021-02-11] MEDS ORDERED: 0.9 % Sodium Chloride 500 ML ONE (12:54)
[2021-02-11] MEDS ORDERED: Lidocaine -MPF 1% 5 ML AMPUL ONE (14:19)
[2021-02-11] MEDS: Piperacillin/Tazobactam 3.375 GM in 0.9 % Sodium Chloride Mini Bag 100 ML IVPB SCH ×2 (15:07→23:47)
[2021-02-11] MEDS ORDERED: Insulin LISPRO 300 UNITS/3 ML VIAL SUBQ SCH (16:14)
[2021-02-11] MEDS ORDERED: Insulin LISPRO 300 UNITS/3 ML VIAL SUBQ ONE (16:30)
[2021-02-11] MEDS ORDERED: Clinimix 5%-20% SOLUTION 2,000 ML with MVI, adult with vitamin K 10 ML, Sodium Acetat... IVC SCH (17:00)
[2021-02-11] MEDS ORDERED: Insulin DETEMIR 100 UNIT/ML X5UNITS SUBQ SCH ×2 (21:00)
[2021-02-11] MEDS: Dexmedetomidine HCl 400 MCG/100 ML MLS IVC SCH (23:20)
[2021-02-12 01:08] LABS: Calcium 8.5 mg/dL (8.6-10.3); Magnesium 2.8 mg/dL (1.6-2.6); Phosphorous 4.1 mg/dL (2.7-4.5)
[2021-02-12 01:16] LABS: VBG Ionized Calcium 1.22 mmol/L (1.15-1.35)
[2021-02-12] MEDS: Phenylephrine 50 MG in 0.9 % Sodium Chloride 250 ML IVC SCH ×2 (01:47→23:41)
[2021-02-12] MEDS: Amiodarone Premix 360 MG/200 ML BAG IVC SCH ×4 (01:48→19:51)
[2021-02-12] MEDS: Artificial Tears SOLN 15 ML BOTTLE BOTH EYES SCH ×6 (03:08→23:15)
[2021-02-12] MEDS: Ipratropium 1 PUFF INHALER IH SCH ×6 (03:18→23:48)
[2021-02-12 04:15] LABS: ABG Base Excess -7 mEq/L (-2 to 3); ABG HCO3 21 mEq/L (21-27); ABG Oxygen Saturation 88 % (95-98); ABG PCO2 54 mmHg (35-45); ABG PH 7.21 pH Units (7.32-7.45); ABG PO2 68 mmHg (85-104); ABG TCO2 23 mEq/L (20-26); Blood Gas VT 460 cc
[2021-02-12] MEDS: FentaNYL (PF) 1,000 MCG/100 ML IV.SOLN IVC SCH ×3 (04:24→20:59)
[2021-02-12 05:21] LABS: VBG Ionized Calcium 1.25 mmol/L (1.15-1.35)
[2021-02-12 05:21] LABS: Hematocrit 43.7 % (37.5-50.1); Hemoglobin 13.7 g/dL (12.9-16.9); Mean Corpuscular HGB Conc 31.4 g/dL (31.6-35.5); Mean Corpuscular Hemoglobin 29.8 pg (28.0-33.3); Mean Corpuscular Volume 95.2 fL (83.0-100.0); Mean Platelet Volume 10.9 fL (9.4-12.4); Platelet Count 244 K/mcL (140-400); Red Blood Count 4.59 M/mcL (4.19-5.50); Red Cell Distribution Width 13.7 % (11.5-14.5)
[2021-02-12 05:26] LABS: White Blood Count 46.1 K/mcL (4.3-11.1)
[2021-02-12 05:40] LABS: Calcium 8.4 mg/dL (8.6-10.3); Magnesium 2.8 mg/dL (1.6-2.6); Phosphorous 3.4 mg/dL (2.7-4.5); Potassium 4.6 mEq/L (3.5-5.1)
[2021-02-12 05:43] LABS: Monocytes # 1.8 K/mcL (0.0-1.3); Neutrophils # 44.3 K/mcL (1.6-8.9); Platelet Estimate Normal (Normal)
[2021-02-12] MEDS: Cholecalciferol (D-3) 1,000 UNIT (25MCG) TABLET PO SCH (07:57)
[2021-02-12] MEDS: Pantoprazole 40 MG VIAL IVP SCH (07:57)
[2021-02-12] MEDS: Chlorhexidine Rinse 15 ML MOUTHWASH MM SCH ×2 (07:57→19:46)
[2021-02-12] MEDS: Dexamethasone Sodium Phos/PF 10 MG/ML VIAL IVP SCH (07:57)
[2021-02-12] MEDS: Piperacillin/Tazobactam 3.375 GM in 0.9 % Sodium Chloride Mini Bag 100 ML IVPB SCH ×3 (07:58→23:15)
[2021-02-12] MEDS: Multivit/Ca/Min/Fe/FA 1 TAB TABLET PO SCH (07:58)
[2021-02-12] MEDS: Cisatracurium 200 MG in 0.9 % Sodium Chloride 180 ML IVC SCH (09:01)
[2021-02-12] MEDS: Norepinephrine 4 MG/254 ML IV.SOLN IVC SCH ×2 (10:52→16:28)
[2021-02-12 13:24] LABS: Hematocrit 43.9 % (37.5-50.1)
[2021-02-12] MEDS: Midazolam HCl 50 MG/100 ML IV.SOLN IVC SCH (13:37)
[2021-02-12] MEDS: Heparin 25,000UNIT/250ML 1/2NS 25,000 UNIT/250 ML IV.SOLN IVC SCH (16:27)
[2021-02-12] MEDS ORDERED: Clinimix 5%-20% SOLUTION 2,000 ML with MVI, adult with vitamin K 10 ML, Sodium Acetat... IVC SCH (17:00)
[2021-02-12] MEDS ORDERED: Clinimix 5%-20% SOLUTION 2,000 ML with MVI, adult with vitamin K 10 ML, Sodium Phosph... IVC SCH (17:00)
[2021-02-12] MEDS ORDERED: Insulin Human Regular 250 UNIT in 0.9 % Sodium Chloride 250 ML IVC SCH (23:45)
[2021-02-12] MEDS ORDERED: Insulin Human Regular 250 UNIT in 0.9 % Sodium Chloride 247.5 ML IVC SCH (23:45)
[2021-02-13] MEDS: Insulin Human Regular 250 UNIT in 0.9 % Sodium Chloride 247.5 ML IVC SCH ×4 (01:01→19:10)
[2021-02-13] MEDS: FentaNYL (PF) 1,000 MCG/100 ML IV.SOLN IVC SCH ×3 (01:26→12:24)
[2021-02-13] MEDS: Midazolam HCl 50 MG/100 ML IV.SOLN IVC SCH ×2 (01:26→13:56)
[2021-02-13] MEDS: Amiodarone Premix 360 MG/200 ML BAG IVC SCH ×4 (01:27→21:40)
[2021-02-13] MEDS: Norepinephrine 4 MG/254 ML IV.SOLN IVC SCH ×3 (01:28→18:46)
[2021-02-13 02:57] LABS: VBG Ionized Calcium 1.11 mmol/L (1.15-1.35)
[2021-02-13] MEDS: Artificial Tears SOLN 15 ML BOTTLE BOTH EYES SCH ×6 (03:01→23:48)
[2021-02-13] MEDS: Ipratropium 1 PUFF INHALER IH SCH ×5 (03:19→20:12)
[2021-02-13 03:41] LABS: Red Cell Distribution Width 14.6 % (11.5-14.5)
[2021-02-13 03:43] LABS: Basophils % 0.4 %; Hematocrit 44.1 % (37.5-50.1); Hemoglobin 11.7 g/dL (12.9-16.9); Lymphocytes # 0.4 K/mcL (0.6-4.6); Lymphocytes % 1.2 %; Mean Corpuscular HGB Conc 26.5 g/dL (31.6-35.5); Mean Corpuscular Hemoglobin 29.4 pg (28.0-33.3); Mean Corpuscular Volume 110.8 fL (83.0-100.0); Monocytes # 1.2 K/mcL (0.0-1.3); Monocytes % 3.4 %; Platelet Count 147 K/mcL (140-400); Red Blood Count 3.98 M/mcL (4.19-5.50)
[2021-02-13 03:46] LABS: Basophils # 0.1 K/mcL (0.0-0.2); Neutrophils # 32.9 K/mcL (1.6-8.9)
[2021-02-13 03:49] LABS: White Blood Count 36.1 K/mcL (4.3-11.1)
[2021-02-13 04:17] LABS: ABG Base Excess -8 mEq/L (-2 to 3); ABG HCO3 22 mEq/L (21-27); ABG Oxygen Saturation 94 % (95-98); ABG PCO2 60 mmHg (35-45); ABG PH 7.17 pH Units (7.32-7.45); ABG PO2 93 mmHg (85-104); ABG TCO2 24 mEq/L (20-26); Blood Gas VT 460 cc
[2021-02-13 04:18] LABS: Platelet Estimate Normal (Normal)
[2021-02-13] MEDS: Cisatracurium 200 MG in 0.9 % Sodium Chloride 180 ML IVC SCH ×2 (06:55→19:20)
[2021-02-13] MEDS: Piperacillin/Tazobactam 3.375 GM in 0.9 % Sodium Chloride Mini Bag 100 ML IVPB SCH ×3 (08:06→23:48)
[2021-02-13] MEDS: Dexamethasone Sodium Phos/PF 10 MG/ML VIAL IVP SCH (08:07)
[2021-02-13] MEDS: Pantoprazole 40 MG VIAL IVP SCH ×2 (08:07→17:56)
[2021-02-13] MEDS: Cholecalciferol (D-3) 1,000 UNIT (25MCG) TABLET PO SCH (08:07)
[2021-02-13] MEDS: Chlorhexidine Rinse 15 ML MOUTHWASH MM SCH ×2 (08:07→20:19)
[2021-02-13] MEDS: Multivit/Ca/Min/Fe/FA 1 TAB TABLET PO SCH (08:08)
[2021-02-13 08:57] LABS: Magnesium 2.5 mg/dL (1.6-2.6); Phosphorous 3.9 mg/dL (2.7-4.5); Potassium 4.2 mEq/L (3.5-5.1)
[2021-02-13] MEDS: DilTIAZem 50 MG/50 ML IV.SOLN IVC SCH (09:15)
[2021-02-13] MEDS: Heparin 25,000UNIT/250ML 1/2NS 25,000 UNIT/250 ML IV.SOLN IVC SCH (09:15)
[2021-02-13 14:19] LABS: Estimated Average Glucose 200 mg/dl; Hemoglobin A1C 8.6 %
[2021-02-13 14:37] LABS: ABG Base Excess -8 mEq/L (-2 to 3); ABG HCO3 22 mEq/L (21-27); ABG Oxygen Saturation 80 % (95-98); ABG PCO2 60 mmHg (35-45); ABG PH 7.17 pH Units (7.32-7.45); ABG PO2 56 mmHg (85-104); ABG TCO2 23 mEq/L (20-26); Blood Gas Modality ASSIST CONTROL; Blood Gas VT 460 cc
[2021-02-13] MEDS: Phenylephrine 50 MG in 0.9 % Sodium Chloride 250 ML IVC SCH ×2 (14:45→20:15)
[2021-02-13] MEDS: Vasopressin 40 UNIT in D5% in Water 100 ML IVP SCH (15:07)
[2021-02-13] MEDS ORDERED: Albumin Human 5% 12.5 GM/250 ML IV.SOLN IVPB ONE ×2 (16:08→18:07)
[2021-02-13] MEDS ORDERED: Clinimix 5%-20% SOLUTION 2,000 ML with MVI, adult with vitamin K 10 ML, Sodium Acetat... IVC SCH (17:00)
[2021-02-13] MEDS ORDERED: Clinimix 5%-20% SOLUTION 2,000 ML with MVI, adult with vitamin K 10 ML, Sodium Phosph... IVC SCH (17:00)
[2021-02-13] MEDS: Dexmedetomidine HCl 400 MCG/100 ML MLS IVC SCH (17:42)
[2021-02-13 17:48] LABS: VBG Ionized Calcium 1.21 mmol/L (1.15-1.35)
[2021-02-13] MEDS: MetroNIDAZOLE 500 MG/100 ML 500 MG/100 ML BAG IVPB SCH ×2 (17:49→23:48)
[2021-02-13] MEDS: FentaNYL (PF) 2,500 MCG/50 ML IV.SOLN IVC SCH ×2 (17:56→23:48)
[2021-02-13 18:02] LABS: INR 1.2; Prothrombin Time 13.5 Seconds (9.4-12.1)
[2021-02-13] MEDS ORDERED: Albumin Human 5% 12.5 GM/250 ML IV.SOLN ONE (18:04)
[2021-02-13 18:06] LABS: Activated Partial Thrombo Time 29.3 Seconds (26.0-36.0)
[2021-02-13 18:07] LABS: Albumin 2.6 g/dL (3.5-5.7); Bilirubin,Direct 0.2 mg/dL (0.0-0.2); Bilirubin,Indirect 0.2 mg/dL (0.0-1.0); Bilirubin,Total 0.4 mg/dL (0.3-1.0); Globulin 2.7 g/dL (2.4-3.5); Magnesium 2.5 mg/dL (1.6-2.6); Potassium 5.1 mEq/L (3.5-5.1); Total Protein 5.3 g/dL (6.4-8.9)
[2021-02-13 18:53] LABS: Basophils % 0.3 %; Hemoglobin 13.1 g/dL (12.9-16.9); Monocytes % 4.2 %; Platelet Count 161 K/mcL (140-400); Red Cell Distribution Width 14.3 % (11.5-14.5)
[2021-02-13 18:55] LABS: Basophils # 0.2 K/mcL (0.0-0.2); Hematocrit 41.3 % (37.5-50.1); Lymphocytes # 0.3 K/mcL (0.6-4.6); Lymphocytes % 0.6 %; Mean Corpuscular HGB Conc 31.7 g/dL (31.6-35.5); Mean Corpuscular Hemoglobin 30.1 pg (28.0-33.3); Mean Corpuscular Volume 94.9 fL (83.0-100.0); Mean Platelet Volume 11.2 fL (9.4-12.4); Monocytes # 2.2 K/mcL (0.0-1.3); Neutrophils # 47.5 K/mcL (1.6-8.9); Red Blood Count 4.35 M/mcL (4.19-5.50); Segmented Neutrophils % 90.9 %
[2021-02-13 19:00] LABS: White Blood Count 52.2 K/mcL (4.3-11.1)
[2021-02-13 19:28] LABS: Platelet Estimate Normal (Normal)
[2021-02-13] MEDS: *HR* Metoprolol 5 MG/5 ML VIAL IVP PRN (21:37)
[2021-02-14] MEDS: Phenylephrine 50 MG in 0.9 % Sodium Chloride 250 ML IVC SCH ×3 (00:35→10:56)
[2021-02-14 00:40] LABS: Hematocrit 44.4 % (37.5-50.1); Hemoglobin 13.9 g/dL (12.9-16.9)
[2021-02-14] MEDS: *HR* Dextrose 50 % in Water (Syg) 50 ML SYRINGE IVP PRN ×2 (01:00→11:30)
[2021-02-14] MEDS: Norepinephrine 4 MG/254 ML IV.SOLN IVC SCH ×3 (01:05→15:03)
[2021-02-14] MEDS: Ipratropium 1 PUFF INHALER IH SCH ×5 (01:38→15:49)
[2021-02-14] MEDS: Midazolam HCl 50 MG/100 ML IV.SOLN IVC SCH (02:26)
[2021-02-14] MEDS: Amiodarone Premix 360 MG/200 ML BAG IVC SCH ×2 (03:41→10:11)
[2021-02-14 04:17] LABS: ABG Base Excess -11 mEq/L (-2 to 3); ABG HCO3 20 mEq/L (21-27); ABG Oxygen Saturation 85 % (95-98); ABG PCO2 66 mmHg (35-45); ABG PH 7.09 pH Units (7.32-7.45); ABG PO2 69 mmHg (85-104); ABG TCO2 22 mEq/L (20-26); Blood Gas VT 460 cc
[2021-02-14] MEDS: Artificial Tears SOLN 15 ML BOTTLE BOTH EYES SCH ×3 (04:29→10:57)
[2021-02-14 04:38] LABS: VBG Ionized Calcium 1.17 mmol/L (1.15-1.35)
[2021-02-14 04:45] LABS: Basophils % 0.3 %; Monocytes % 4.3 %; Red Cell Distribution Width 14.7 % (11.5-14.5)
[2021-02-14 04:47] LABS: Basophils # 0.2 K/mcL (0.0-0.2); Hematocrit 43.6 % (37.5-50.1); Immature Granulocytes % 3.5 % (0-4); Immature Platelets 7.6 % (1.1-6.1); Lymphocytes # 0.3 K/mcL (0.6-4.6); Lymphocytes % 0.5 %; Mean Corpuscular HGB Conc 32.1 g/dL (31.6-35.5); Mean Corpuscular Hemoglobin 30.5 pg (28.0-33.3); Mean Platelet Volume 11.6 fL (9.4-12.4); Monocytes # 2.3 K/mcL (0.0-1.3); Neutrophils # 48.7 K/mcL (1.6-8.9); Platelet Count 147 K/mcL (140-400); Red Blood Count 4.59 M/mcL (4.19-5.50); Segmented Neutrophils % 91.4 %
[2021-02-14 04:51] LABS: White Blood Count 53.3 K/mcL (4.3-11.1)
[2021-02-14 05:03] LABS: Calcium 7.8 mg/dL (8.6-10.3); Magnesium 2.4 mg/dL (1.6-2.6); Potassium 5.7 mEq/L (3.5-5.1)
[2021-02-14] MEDS: Pantoprazole 40 MG VIAL IVP SCH (06:35)
[2021-02-14] MEDS: Cholecalciferol (D-3) 1,000 UNIT (25MCG) TABLET PO SCH (07:39)
[2021-02-14] MEDS: Chlorhexidine Rinse 15 ML MOUTHWASH MM SCH (07:39)
[2021-02-14] MEDS: MetroNIDAZOLE 500 MG/100 ML 500 MG/100 ML BAG IVPB SCH (07:39)
[2021-02-14] MEDS: Piperacillin/Tazobactam 3.375 GM in 0.9 % Sodium Chloride Mini Bag 100 ML IVPB SCH (07:39)
[2021-02-14] MEDS: Dexamethasone Sodium Phos/PF 10 MG/ML VIAL IVP SCH (07:40)
[2021-02-14] MEDS: Multivit/Ca/Min/Fe/FA 1 TAB TABLET PO SCH (07:40)
[2021-02-14] MEDS ORDERED: Sodium Bicarbonate 75 MEQ in 0.45 % Sodium Chloride 1,000 ML IVC SCH (08:00)
[2021-02-14] MEDS: Insulin LISPRO 300 UNITS/3 ML VIAL SUBQ SCH ×2 (08:33→10:57)
[2021-02-14] MEDS: DilTIAZem 50 MG/50 ML IV.SOLN IVC SCH (08:42)
[2021-02-14] MEDS: Vasopressin 40 UNIT in D5% in Water 100 ML IVP SCH (10:55)
[2021-02-14 10:57] LABS: ABG Base Excess -8 mEq/L (-2 to 3); ABG HCO3 20 mEq/L (21-27); ABG Oxygen Saturation 94 % (95-98); ABG PCO2 52 mmHg (35-45); ABG PO2 87 mmHg (85-104); ABG TCO2 22 mEq/L (20-26); Blood Gas Modality AF; Blood Gas VT 480 cc
[2021-02-14] MEDS: Dexmedetomidine HCl 400 MCG/100 ML MLS IVC SCH (10:57)
[2021-02-14] MEDS: FentaNYL (PF) 2,500 MCG/50 ML IV.SOLN IVC SCH (11:50)
[2021-02-14] MEDS ORDERED: *HR* LORazepam 2 MG/ML VIAL IVP PRN (15:33)
[2021-02-14] MEDS ORDERED: Clinimix 5%-20% SOLUTION 2,000 ML, Parenteral Amino Acid 10% 0 ML with MVI, adult with... IVC SCH (17:00)
== END 2021-02-14 15:47 | disposition expired | DRG 870 ==
LOC: SUATTDRO → EMEROOARM 10:40 → 3ANU 10:40 → SUATTDRO 19:56 → 3ANU 22:32 → 3NENU 02-06 12:12 → ICNU 02-09 10:44
PROVIDERS: ADMIT Internal Medicine; ATTEND Internal Medicine